=== PATIENT | female | born 1960 | race Caucasian/White ===

== ENCOUNTER 2017-01-06 08:45 | Inpatient (IN) | payer OTHER ==
--- NOTE | ~2017-01-06 | CT57 ---
[facility] A Service of [facility] & [facility] RADIOLOGY TEXT RESULTS PATIENT: VENESSA RAMIREZ LOCATION: [address] : [birth year] UNIT #: [id number] AGE: [address]: Lacy Loyd MD SEX: F ORDER DR: [id number] [facility] [address] [place], [place] [address] [id number] MR#: [id number] Acc #: [id number] NAME: VENESSA RAMIREZ : 1960 SEX: F STUDY DATE/TIME: 01/06/2017 13:50 UNIT: [facility] ROOM: [facility] STUDY DESCRIPTION: CT Chest Wo Cont Attending Physician: Lacy Loyd M.D. Ordering Physician: Zahira Garcia M.D. Primary Care Physician: Bella Chase M.D. MEDICAL IMAGING REPORT This report is preliminary unless electronic signature is present EXAM CT chest without contrast, 01/06/2017 1350 hours. CLINICAL HISTORY 56-year-old woman with shortness of air for 3 months, intubation today. COMPARISON CT abdomen 07/18/2014 and chest x-ray 01/06/2017. No prior chest CT available for comparison. TECHNIQUE Helical noncontrasted images were obtained from the thoracic inlet through the adrenal glands. Sagittal and coronal reconstructions were performed. Total exam DLP 875 mGy-cm. This CT exam was performed with one or more of the following radiation dose reduction techniques: automatic exposure control, adjustment of mA and/or kV according to patient size, and iterative reconstruction. FINDINGS Images through the thoracic inlet demonstrate no definite thyroid lesion or adenopathy. There is an endotracheal tube present with tip right at the orifice of the right mainstem bronchus. Suggest withdrawing 1-2 cm. There is no pathologic mediastinal, hilar or axillary adenopathy. The main pulmonary artery is increased in size measuring 4.1 cm with mild prominence of the right and left pulmonary arteries which can be associated with pulmonary arterial hypertension. The aorta is normal in caliber. There is no pathologic adenopathy. No pleural or pericardial fluid. STS. [facility] A Service of [facility] & [facility] RADIOLOGY TEXT RESULTS PATIENT: VENESSA RAMIREZ LOCATION: CIC3 CICCU3-16 : 56 UNIT #: [id number] AGE: [address]: Lacy Loyd MD SEX: F ORDER DR: Lung window images demonstrate normal vascularity. There is no evidence of pneumonia or edema. There is linear and plate-like density at the right and left lung bases consistent with atelectasis. Limited views through the upper abdomen demonstrate no liver lesion. Benign low-density left adrenal adenoma is unchanged. IMPRESSION 1. The tip of the endotracheal tube is right at the orifice of the right mainstem bronchus. Suggest withdrawing 1-2 cm. 2. There is prominence of the pulmonary arteries which can be associated with pulmonary arterial hypertension. The aorta is normal in caliber. 3. Pulmonary vascularity is otherwise normal. There is no evidence of edema, pneumonia or effusion. There is mild linear to plate-like bibasilar densities consistent with atelectasis. 4. Stable fat-containing left adrenal adenoma. Dictated by... Flor Minor M.D. THIS IS AN ELECTRONICALLY VERIFIED REPORT Flor Minor M.D. at 01/07/2017 9:[address] TD: 01/06/2017 23:05 JOB #: [id number] MEDICAL IMAGING REPORT Page 1 of 1 COPY
--- NOTE | ~2017-01-06 | CR7 ---
[facility] A Service of [facility] & [facility] RADIOLOGY TEXT RESULTS PATIENT: VENESSA RAMIREZ LOCATION: [address] : 56 UNIT #: [id number] AGE: [address]: Lacy Loyd MD SEX: F ORDER DR: [id number] [facility] [address] [place], [place] [address] [id number] I MR#: [id number] Acc #: [id number] NAME: VENESSA RAMIREZ : 1960 SEX: F STUDY DATE/TIME: 01/06/2017 18:10 UNIT: [facility] ROOM: [facility] STUDY DESCRIPTION: CR Abdomen Single AP View Attending Physician: Lacy Loyd M.D. Ordering Physician: Lacy Loyd M.D. Primary Care Physician: Bella Chase M.D. MEDICAL IMAGING REPORT This report is preliminary unless electronic signature is present EXAM Abdomen single AP view. HISTORY Feeding tube placement today. COMMENT KUB obtained 18:10 01/06/2017 shows feeding tube terminating expected location mid stomach. Recommend advancement 10-15 cm with followup film for better positioning. IMPRESSION Feeding tube terminates expected location mid stomach. Recommend advancement 10-15 cm with a followup film for better placement. Dictated by... Roshni Monreal M.D. THIS IS AN ELECTRONICALLY VERIFIED REPORT Rohsni Monreal M.D. at 01/07/2017 10:20 AM AMAN/timmy TD: 01/07/2017 10:13 JOB #: [id number] MEDICAL IMAGING REPORT Page 1 of 1 COPY
--- NOTE | ~2017-01-06 | HP ---
Unit #: [id number] #: [id number] Patient: VENESSA RAMIREZ [id number] [facility] [place], [place] [address] [id number] I MR#: [id number] NAME: VENESSA RAMIREZ ROOM: [facility] Age: 56 Sex: F Admission Date: 01/06/2017 : 1960 Attending Physician: Bella Chase M.D. Primary Care Physician: Unknown Not Know HISTORY AND PHYSICAL CHIEF COMPLAINT Shortness of breath. HISTORY OF PRESENT ILLNESS Ms. Ramirez is a 56-year-old female transferred from [facility] after presenting there with shortness of breath. The patient is awake and nods and tries to answer on the ventilator, but obviously ability to obtain history is limited and history is taken primarily from the chart. The patient presented at approximately 3 a.m. this morning to [facility] complaining of shortness of breath. She arrived via ambulance. She was found to be in significant respiratory distress by EMS and was given a DuoNeb nebulizer treatment. However, she still was significantly tachypneic per ER notes and requiring accessory muscle use. Her O2 sat was somewhere in the 30% to 50% range on room air, and the patient was emergently intubated. The patient was reportedly trying to smoke last evening when she became short of breath, per the patient's daughter. I will note the patient's daughter currently is not at bedside. The patient was given Levaquin and subsequently transferred to our facility. Per record review, the patient was admitted to [facility] in November with Serratia pneumonia and was intubated during that stay. She was also diagnosed with influenza earlier in December. That was, I believe, on December 19, 2016, per records. The patient denies any chest pain prior to the onset of symptoms but now states she has some sharp stabbing chest pain. She denies any orthopnea. She denies any fever at home. She denies any sick contacts. She did not reveal to me she had been smoking at home, but again, ability to obtain history is limited. The patient is currently satting 100% on current vent settings, which include AC with a rate of 12, a PEEP of 5 and FIO2 of 100%. She is awake and very comfortable on the ventilator and on minimal amounts of propofol. She is being admitted due to her respiratory failure. While at [facility], NG tube placement was attempted, but unfortunately, the patient developed nosebleed, and NG has not been placed. This resulted in a nosebleed, and the patient subsequently had blood in her NG tube following this nosebleed. PAST MEDICAL HISTORY 1. Chronic respiratory failure, maintained on 2 liters of oxygen per nasal cannula continuously. Per record review, the patient had been increasing this to 4 liters at home over the last day or so. 2. Recent influenza. Unit #: [id number] #: [id number] Patient: VENESSA RAMIREZ 3. COPD. 4. Diabetes mellitus type 2. 5. Schizophrenia. 6. Hyperlipidemia. 7. Seasonal allergies. 8. Hypertension. 9. Hypothyroidism. 10. Gastroesophageal reflux disease. 11. Morbid obesity. 12. Questionable history of amitriptyline overdose per records. PAST SURGICAL HISTORY (per record review) 1. Tubal ligation. 2. Cholecystectomy. 3. Colonoscopy. 4. Hernia repair. FAMILY HISTORY Family history is significant for emphysema in the patient's father; diabetes in the patient's mother, brother, sister and maternal grandfather; breast cancer in the patient's mother; hypertension in mother, brother and sister; heart disease in mother, brother and sister; stroke in the patient's mother and maternal grandfather; pulmonary embolism in the patient's mother and sister; schizophrenia in the patient's father; seizure in the patient's sister and prior history of DVT in the patient's sister, as well; stomach cancer in the patient's mother and prior history of alcohol addiction. Aneurysm is also noted but location is unknown. ALLERGIES Penicillin, sulfa, codeine and tetracycline. HOME MEDICATIONS 1. Elavil 100 mg 2 tablets at bedtime. 2. Fish oil 1,200 mg daily. 3. Geodon 80 mg 2 capsules at bedtime. 4. Januvia 100 mg daily. 5. Percocet 5/325 mg 1 tablet q.4 hours p.r.n. pain. 6. Singulair 10 mg daily. 7. Symbicort 160/4.5 mcg 2 puffs b.i.d. 8. Vitamin D2 - 50,000 units weekly. 9. Zyrtec 10 mg daily. 10. DuoNeb nebulizer treatments q.i.d. 11. Norvasc 10 mg daily. 12. Atorvastatin 10 mg at bedtime. 13. Glimepiride 4 mg b.i.d. 14. Hydrochlorothiazide 25 mg every other day. 15. Levothyroxine 200 mcg daily. 16. Losartan 50 mg daily. 17. Metformin 1,000 mg b.i.d. 18. Metoprolol tartrate 50 mg b.i.d. 19. Omeprazole 40 mg daily. SOCIAL HISTORY Patient reportedly was living at home with her daughter and had been smoke free for 6 weeks but, again, there is this report that perhaps she was trying to smoke yesterday when she became short of breath. There is no alcohol use. Unit #: [id number] #: [id number] Patient: VENESSA RAMIREZ REVIEW OF SYSTEMS Unobtainable given the patient is intubated. PHYSICAL EXAMINATION VITAL SIGNS: Current temperature 97.8, blood pressure 120/58, respiratory rate 22, oxygen saturation 100%. The patient is currently on AC with a rate of 12, PEEP of 5 and FIO2 of 100%. GENERAL: The patient is awake. She is alert. She does nod and mouth answers to you on minimal amounts of propofol. She does not appear uncomfortable. HEENT: Pupils are equally round and reactive to light bilaterally. Anicteric sclera. No conjunctival pallor. Oropharynx is difficult to evaluate, although I will note there is some blood in the NG tube. NECK: Supple. No lymphadenopathy. No thyromegaly. No JVD. Significantly increased neck diameter noted. HEART: Regular rate and rhythm without murmur, rub or gallop. LUNGS: Diminished anteriorly but I cannot appreciate any wheezes, rhonchi or crackles. ABDOMEN: Obese, soft, nontender, mildly distended. Positive bowel sounds. EXTREMITIES: No cyanosis, clubbing. She has 1+ lower extremity pitting edema. SKIN: Warm. It is mildly dry. There is brownish discoloration to anterior shins in lower extremities consistent with chronic venous stasis. No other rash appreciated. NEUROLOGIC: Cranial nerves II-XII are intact. Sensation, strength, deep tendon reflexes grossly are normal. MUSCULOSKELETAL: No significant joint abnormalities noted upon exam. PSYCHIATRIC: Appears alert and oriented but, again, otherwise, limited. DIAGNOSTIC STUDIES LABORATORY: Labs done at [facility] reveal a negative Tylenol and salicylate level in addition to a negative alcohol. ABG upon presentation revealed a pH of 7.28, pCO2 of 71, pO2 of 132. This is while she was on the ventilator with an FIO2 of 70%. CMP reveals a sodium of 136, potassium 4, chloride 95, CO2 of 34, BUN 24, creatinine 0.9, glucose of 219. AST, ALT, lactic acid, bilirubin are all normal. Troponin was less than 0.02, and BNP was 66. WBC mildly elevated at 11.2, hemoglobin 10.9, platelet count 252,000. INR was normal at 0.9. Urinalysis was also unremarkable. IMAGING: Chest x-ray done there reveals some mild pulmonary congestion and cardiomegaly and perhaps atelectasis versus effusion in the left lower lobe. CARDIOVASCULAR: EKG reveals normal sinus rhythm. There is no acute ST or T wave abnormality. ASSESSMENT 1. Acute on chronic hypercapnic hypoxic respiratory failure. 2. Mild COPD exacerbation. 3. Questionable pneumonia of the left lower lobe. 4. Anemia. 5. Diabetes mellitus type 2. 6. Hypertension. 7. Hyperlipidemia. 8. Gastroesophageal reflux disease. 9. Probable obstructive sleep apnea. Unit #: [id number] #: [id number] Patient: VENESSA RAMIREZ 10. History of schizophrenia. 11. Chronic pain syndrome, maintained on narcotics. 12. Obesity. PLAN 1. Will admit the patient to the ICU. Will consult Dr. Garcia for ventilatory management. I am going to start her on Solu-Medrol, in addition to empiric antibiotics and give her a single dose of Lasix until we can further evaluate respiratory status. I am hoping she will not require intubation for any prolonged period. 2. I am going to hold other home meds. Will place her on Lovenox and Protonix. Will also provide hydralazine p.r.n. for blood pressure. 3. Will try to get copy of records from [facility]. 4. Accu-Cheks q.6 hours for now. Dictated by Lacy Loyd M.D. BERNIE/soren TD: 01/06/2017 09:38 JOB #: [id number] HISTORY AND PHYSICAL Page 1 of 1 X Lacy Loyd MD HISTORY AND PHYSICAL
--- NOTE | ~2017-01-06 | EKG ---
PATIENT: VENESSA RAMIREZ UNIT #: [id number] Ventricular Rate: 97 BPM Atrial Rate: 97 BPM P-R Interval: 198 ms QRS Duration: 98 ms Q-T Interval: 494 ms QTC Calculation(Bezet): 627 ms P [place]: 47 degrees Calculated R [place]: 151 degrees Calculated T [place]: 58 degrees Diagnosis Line: Normal sinus rhythm Diagnosis Line: Right ventricular hypertrophy Diagnosis Line: Nonspecific ST and T wave abnormality Diagnosis Line: Prolonged QT Diagnosis Line: Abnormal ECG Diagnosis Line: When compared with ECG of 06-JAN-2017 11:48, Diagnosis Line: Aberrant conduction is no longer Present Diagnosis Line: Questionable change in QRS axis Diagnosis Line: Nonspecific T wave abnormality, improved in Diagnosis Line: Lateral leads Diagnosis Line: QT has lengthened Diagnosis Line: Confirmed by JENNY BAKER MD ([id number]) on 01/08/2017 Diagnosis Line: 9:18:27 AM INTERPRETING MD: OLIVIA PERLA
--- NOTE | ~2017-01-06 | CR63 ---
[facility] A Service of [facility] & [facility] RADIOLOGY TEXT RESULTS PATIENT: VENESSA RAMIREZ LOCATION: [facility] 563-01 : 56 UNIT #: [id number] AGE: [address]: Lacy Loyd MD SEX: F ORDER DR: [id number] [facility] [address] [place], [place] [address] [id number] I MR#: [id number] #: [id number] NAME: VENESSA RAMIREZ : 1960 SEX: F STUDY DATE/TIME: 01/08/2017 9:11 UNIT: [facility] ROOM: [facility] STUDY DESCRIPTION: CR Chest 2 View Attending Physician: Lacy Loyd M.D. Ordering Physician: Zahira Garcia M.D. Primary Care Physician: Bella Chase M.D. MEDICAL IMAGING REPORT This report is preliminary unless electronic signature is present EXAM Chest x-ray HISTORY Cough and shortness of breath for the past 2 days. TECHNIQUE 2 views of the chest were obtained. FINDINGS Cardiomegaly is again seen. In the lungs, pulmonary vascular markings are mildly prominent. No focal infiltrates are seen on either side. No definite pleural effusions are noted. Since the previous examination, no new infiltrates are seen. IMPRESSION No change following extubation. Mild vascular congestion is seen but there are no new infiltrates on either side. Dictated by... Lalo Rodriguez M.D. THIS IS AN ELECTRONICALLY VERIFIED REPORT Lalo Rodriguez M.D. at 01/08/2017 3:44 PM MINE/lane TD: 01/08/2017 10:50 JOB #: [id number] MEDICAL IMAGING REPORT Page 1 of 1 COPY
--- NOTE | ~2017-01-06 | A ---
[facility] Nutrition Therapy DATE: 01/06/17 Patient: VENESSA RAMIREZ Physician: GRETA Address: [address] [facility] Room/Bed: [address], Zip: [place] [address] Admit Date: 01/06/17 Date of : 56 Height: 5 0 Weight: 286 130 NUTRITIONAL ASSESSMENT: REASON: NPO status in ICU 56 yo female admitted for respiratory failure, PNA, COPD exacerbation PMH: COPD, HLD, HTN, DM, GERD, asthma, chronic neck and back pain, morbid obesity, chronic schizo phrenia, cholecysctectomy, hernia repair Anthropometrics: Ht: 63" wt: 130 kg BMI: 50.8 IBW: 52.3 kg Labs: Accuchecks 145, no other labs available Meds: Propofol @ 12.4, solu-medrol, protonix, novolog, zofran I/O & Bowel function: none available, last BM unknown Skin Integrity: Bruise RLE Edema: BLE 1+ Estimated Nutrition Needs: 8739-0351 kcals (11-14 kcals/kg ABW) 104-130 grams protein (2.0-2.5 grams/kg IBW) Assessment: Chart reviewed, events noted. Pt is intubated and sedated in the ICU. Propofol is providing an additional 327 kcals from lipids at this time. Pt is awake on the vent despite sedation, able to say that she is 5'3" when RN asked. DHT placement ordered per MD note in chart with no plans for nutrition support at this time. No family in room to provide further information. Please see recommendations below. Dx: Inadequate protein-energy intake RT clinical condition AEB intubated, NPO status. Intervention: 1. Enteral nutrition once medically feasible Monitoring, Evaluation and Goals: 1. Nutrition; provide >80% estimated nutrient needs 2. Labs; WNL: glucose 3. Weight; prevent unintentional weight loss, promote gradual weight loss towards healthy BMI range once medically feasible Recommendations: [facility] Nutrition Therapy DATE: 01/06/17 Patient: VENESSA RAMIREZ Physician: GRETA Address: [address] [facility] Room/Bed: [address], Zip: [place] [id number] Admit Date: 01/06/17 Date of : 56 Height: 5 0 Weight: 286 130 1. Once medically feasible, recommend initiating enteral nutrition with Glucerna 1.5 @ 20 mL/hr. Increase by 10 mL q 8 hrs as tolerated to indicated goal below: WHILE THE PT IS RECEIVING PROPOFOL: -Increase Glucerna 1.5 to 35 mL/hr + 30 mL Prostat TID to provide: 1887 kcals/ 114 grams protein/ 638 mL free H20 WHEN THE PT IS NO LONGER RECEIVING PROPOFOL: -Increase Glucerna 1.5 to 45 mL/hr + 30 mL Prostat once daily to provide: 1720 kcals/ 104 grams protein/ 820 mL free H20 2. If the pt is extubated, recommend advancing diet per BLOOD BANK LABORATORY TECHNICIAN recommendations + heart healthy/ consistent carbohydrate restrictions. Pt is at moderate-severe nutritional risk. RD will follow hospital course. Respectfully, ISABEL TAYLOR RD, LD Food and Nutritional Services [facility] cc: client file
--- NOTE | ~2017-01-06 | EKG ---
PATIENT: VENESSA RAMIREZ UNIT #: [id number] Ventricular Rate: 89 BPM Atrial Rate: 89 BPM P-R Interval: 150 ms QRS Duration: 94 ms Q-T Interval: 420 ms QTC Calculation(Bezet): 511 ms P [place]: 55 degrees Calculated R [place]: -59 degrees Calculated T [place]: 49 degrees Diagnosis Line: Sinus rhythm with Possible Premature atrial Diagnosis Line: complexes with Aberrant conduction Diagnosis Line: Left axis deviation Diagnosis Line: Nonspecific T wave abnormality Diagnosis Line: Prolonged QT Diagnosis Line: Abnormal ECG Diagnosis Line: No previous ECGs available Diagnosis Line: Confirmed by ELIJAH AYALA MD ([id number]) on Diagnosis Line: 01/06/2017 2:29:26 PM INTERPRETING MD: LUCY PERLA
--- NOTE | ~2017-01-06 | EKG ---
PATIENT: VENESSA RAMIREZ UNIT #: [id number] Ventricular Rate: 86 BPM Atrial Rate: 86 BPM P-R Interval: 176 ms QRS Duration: 108 ms Q-T Interval: 402 ms QTC Calculation(Bezet): 481 ms P [place]: 50 degrees Calculated R [place]: -26 degrees Calculated T [place]: 39 degrees Diagnosis Line: Normal sinus rhythm Diagnosis Line: Prolonged QT Diagnosis Line: Abnormal ECG Diagnosis Line: When compared with ECG of 07-JAN-2017 06:49, Diagnosis Line: (unconfirmed) Diagnosis Line: QRS axis Shifted left Diagnosis Line: ST no longer depressed in Anterior leads Diagnosis Line: T wave inversion less evident in Anterolateral Diagnosis Line: leads Diagnosis Line: QT has shortened Diagnosis Line: Confirmed by JENNY BAKER MD ([id number]) on 01/09/2017 Diagnosis Line: 9:35:09 AM INTERPRETING MD: OLIVIA PERLA
--- NOTE | ~2017-01-06 | CO ---
Unit #: [id number] #: [id number] Patient: VENESSA RAMIREZ [id number] [address] [address] [id number] I MR#: [id number] NAME: VENESSA RAMIREZ ROOM: [facility] Age: 56 Sex: F Admission Date: 01/06/2017 : 1960 Attending Physician: Lacy Loyd M.D. Primary Care Physician: Bella Chase M.D. CONSULTATION REPORT REASON FOR CONSULTATION Critical care management. CHIEF COMPLAINT Cough, shortness of breath. HISTORY OF PRESENT ILLNESS 56-year-old female with a past medical history of severe COPD and chronic hypoxic respiratory failure, recent pneumonia, diabetes mellitus, schizophrenia, hypertension, dyslipidemia, gastroesophageal reflux disease and likely obstructive sleep apnea, presents to the outside emergency room with a complaint of cough, shortness of breath and was found to be hypoxic. Patient was intubated at an outside facility, transferred to us. I am seeing the patient at bedside. Currently awake, alert, on a ventilator. Following commands. REVIEW OF SYSTEMS Unobtainable due to patient being on ventilator. PAST MEDICAL HISTORY As described above. PAST SURGICAL HISTORY 1. Tubal ligation. 2. Cholecystectomy. 3. Colonoscopy. 4. Hernia repair. FAMILY HISTORY Significant for emphysema. SOCIAL HISTORY Positive for smoking. No alcohol, no drug abuse. ALLERGIES Penicillin, sulfa, codeine, tetracycline. HOME MEDICATIONS 1. Elavil. 2. Fish oil. 3. Geodon. 4. Januvia. Unit #: [id number] #: [id number] Patient: VENESSA RAMIREZ 5. Percocet. 6. Singulair. 7. Symbicort. 8. Vitamin D2. 9. Zyrtec. 10. Duo-Nebs. 11. Norvasc. 12. Lipitor. 13. Glimepiride. 14. Hydrochlorothiazide. 15. Levothyroxine. 16. Losartan. 17. Metformin. 18. Metoprolol. 19. Omeprazole. SOCIAL HISTORY Quit smoking four to six weeks. Started smoking again. Denies alcohol or drug abuse. PHYSICAL EXAMINATION VITAL SIGNS: Temperature is currently 96, pulse 71, blood pressure is 123/77. NEUROLOGICAL: Awake, alert, oriented. No neuro deficit. HEENT: PERRLA. NECK: Supple. No JVD. CHEST: Bilateral air entry, bilateral mild rhonchi. GI: Nontender, soft. Bowel sounds positive. EXTREMITIES: No edema. SKIN: No rashes, no ulcers. LYMPHATIC: No lymphadenopathy. DIAGNOSTIC STUDIES Labs and imaging have been reviewed. ASSESSMENT AND PLAN 1. Acute hypoxic/hypercapnic respiratory failure. 2. Acute exacerbation of chronic obstructive pulmonary disease, likely pneumonia: Rule out volume overload. Plan is to continue patient on vent support. Check a BMP, diurese, non-contrast CT of the chest, CPAP trial, IV steroids, IV antibiotics. Check for flu. Patient will be closely monitored. Please see orders for detailed plan. Thank you very much for this consultation. Will continue to follow the patient. Dictated by... Radha Mchugh/zuly TD: 01/06/2017 12:41 JOB #: [id number] Unit #: [id number] #: [id number] Patient: VENESSA RAMIREZ CONSULTATION REPORT Page 1 of 1 X Zahira Garcia MD X CONSULTATION REPORT
--- NOTE | ~2017-01-06 | CR72 ---
[facility] A Service of [facility] & [facility] RADIOLOGY TEXT RESULTS PATIENT: VENESSA RAMIREZ LOCATION: [facility] 563-01 : 56 UNIT #: [id number] AGE: [address]: Lacy Loyd MD SEX: F ORDER DR: [id number] [facility] [address] [place], [place] [address] [id number] MR#: [id number] Acc #: [id number] NAME: VENESSA RAMIREZ : 1960 SEX: F STUDY DATE/TIME: 01/07/2017 3:21 UNIT: [facility] ROOM: [facility] STUDY DESCRIPTION: CR Chest Single View Portable Attending Physician: Lacy Loyd M.D. Ordering Physician: Lacy Loyd M.D. Primary Care Physician: Bella Chase M.D. MEDICAL IMAGING REPORT This report is preliminary unless electronic signature is present EXAM AP portable chest, 01/07/2017. HISTORY Respiratory failure. Patient on ventilator. Follow up pulmonary status. TECHNIQUE AP portable chest x-ray. FINDINGS The exam shows no change since yesterday. Endotracheal tube tip about 1.7 cm above the kiran. Cardiomegaly with prominent central pulmonary arteries. Mild bibasilar atelectasis. Lungs otherwise clear. No visible airspace consolidation or pleural effusion. IMPRESSION Stable portable chest radiograph, unchanged since yesterday. Dictated by... Paulo Mendoza M.D. THIS IS AN ELECTRONICALLY VERIFIED REPORT Paulo Mendoza M.D. at 01/07/2017 10:06 PM KATERINA/dereje TD: 01/07/2017 13:30 JOB #: [id number] MEDICAL IMAGING REPORT Page 1 of 1 COPY
--- NOTE | ~2017-01-06 | DS ---
Unit #: [id number] #: [id number] Patient: VENESSA RAMIREZ [id number] [address] [place], [place] [address] [id number] MR#: [id number] NAME: VENESSA RAMIREZ ROOM: 563 Age: 56 Sex: F Admission Date: 01/06/2017 : 1960 Discharge Date: 01/08/2017 Attending Physician: Lacy Loyd M.D. Primary Care Physician: Bella Chase M.D. DISCHARGE SUMMARY PRIMARY CARE PHYSICIAN Unknown. PRINCIPAL DIAGNOSES 1. Acute on chronic hypercapnic hypoxic respiratory failure, maintained on 3 L of oxygen per nasal cannula continuously. 2. Acute exacerbation of chronic obstructive pulmonary disease. 3. Obstructive sleep apnea, untreated. 4. Hypomagnesemia. 5. Diabetes mellitus type 2, non-insulin requiring with stable blood sugars. 6. Hypertension. 7. Hypothyroidism. 8. Normocytic anemia. 9. Pulmonary hypertension per chest x-ray. 10. 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 11. Gastroesophageal reflux disease. 12. Hyperlipidemia. 13. Schizophrenia. 14. Morbid obesity. CONSULTANTS Dr. Garcia, Pulmonology. PROCEDURES 1. Two-dimensional echocardiogram with ejection fraction of 55% to 60%. Grade 1 diastolic dysfunction noted. Right ventricular hypertrophy noted, but low normal right ventricular function. No evidence of pericardial effusion. 2. CT of the chest without contrast on 01/06/2017 with prominence of pulmonary artery, otherwise pulmonary vascularity is normal. No evidence of pneumonia. 3. Chest x-ray on 01/08/2017 with no changes. No focal infiltrates. CLINICAL HISTORY AND HOSPITAL COURSE Ms. Ramirez is a nice 56-year-old female with a history of COPD, who presents to [place] [facility] with acutely short of breath and significantly hypoxic, requiring intubation. Please refer to H and P for further details. The patient was transferred to our facility for ICU care. Dr. Garcia was consulted and the patient was started on IV steroids. She was also started on empiric antibiotics given concern for questionable left lower lobe pneumonia on chest x-ray. However, I will note she was Unit #: [id number] #: [id number] Patient: VENESSA RAMIREZ afebrile and only had minimal elevation of white blood cell count. CT scan of the chest was done, did not reveal any pneumonia and antibiotics were discontinued. The patient as noted above was intubated at [facility], but upon arrival to our hospital looks very stable. She was subsequently extubated on 01/07/2017. She then returned to a chronic 3 L of oxygen per nasal cannula continuously and feels well. She is having minimal wheezing and will transition to oral steroids. The patient does have significant underlying sleep apnea and appears all over shortness of breath happens at night while sleeping. The patient will follow up with Dr. Garcia rather quickly to arrange a sleep study given CPAP and/or BiPAP at home. The patient's other chronic condition remained stable. I will note she did have a prolonged QT greater than 600 milliseconds, but I held her Geodon and Elavil and thus normalized. I am going to discontinue her Elavil at night. Continue her Geodon and this can be followed up with her primary care physician. DISCHARGE CONDITION Stable. DISCHARGE STATUS Discharged to home. DISCHARGE MEDICATIONS Oxygen 3 L per nasal cannula continuously; prednisone 10 mg tablets, four tablets for 3 days, three tablets for 3 days, two tablets for 3 days, one tab for 3 days, then discontinue; DuoNeb nebulizer treatments 3 mL every 6 hours; Lopressor 50 mg b.i.d.; Lipitor 10 mg at bedtime; Singulair 10 mg daily; Percocet 5/325 one tablet p.o. q.4 hours p.r.n. for pain; levothyroxine 200 mcg p.o. daily; omeprazole 40 mg daily; metformin 1000 mg b.i.d.; glimepiride 4 mg b.i.d.; losartan 50 mg daily. Symbicort 160/4.5 mcg 2 puffs b.i.d.; fish oil 1200 mg daily; Geodon 80 mg two tablets at bedtime; Januvia 100 mg daily. Of note, I am discontinue the patient's Elavil 100 mg two tablets at bedtime and Norvasc 10 mg daily given blood pressure here is remained stable. DISCHARGE INSTRUCTIONS The patient was instructed to follow heart healthy, constant carb diet. She can increase her activity as tolerated. The patient will follow up with Dr. Garcia in 1 week. Needs outpatient polysomnography and arrangement of CPAP and/or BiPAP. She is to follow up with her primary care physician in 1 to 2 weeks and have repeat EKG in the hospital to ensure prolonged QT stable. Time spent on discharge 32 minutes. Dictated by... Lacy Loyd M.D. BERNIE/veronica Unit #: [id number] #: [id number] Patient: VENESSA RAMIREZ TD: 01/09/2017 06:39 JOB #: [id number] DISCHARGE SUMMARY Page 1 of 1 X Lacy Loyd MD X DISCHARGE SUMMARY
[2017-01-06 09:15] LABS: ARTERIAL BLOOD GAS CARBOXY HB 0.1 %sat (0.0-9.0); ARTERIAL BLOOD GAS HCO3 35.2 mmol/L; ARTERIAL BLOOD GAS MET HB 0.9 %sat (0.0-2.0)
[2017-01-06 09:16] LABS: ARTERIAL BLOOD GAS ALLEN TEST NORMAL; ARTERIAL BLOOD GAS ART SITE LEFT RADIAL; ARTERIAL BLOOD GAS DELIVERY VENT; ARTERIAL BLOOD GAS PCO2 65.3 mmHg (35.0-45.0); ARTERIAL BLOOD GAS VENT MODE AC; ARTERIAL DRAW? YES
[2017-01-06 12:20] LABS: BLOOD UREA NITROGEN 25 mg/dL (9-23); BUN/CREATININE RATIO 27.77; CALCIUM SERUM 9.1 mg/dL (8.4-10.2); CARBON DIOXIDE 35 mmol/L (22-31); CHLORIDE 94 mmol/L (100-111); CREATININE SERUM 0.9 mg/dL (0.6-1.4); GLOM FILT RATE Estimated ABOVE60 mL/min (>60); GLUCOSE FASTING 146 mg/dL (70-110); POTASSIUM 4.1 mmol/L (3.5-5.1); SODIUM 138 mmol/L (135-145)
[2017-01-06 13:17] LABS: INFLUENZA A NEG (NEG); INFLUENZA B NEG (NEG)
[2017-01-07 05:17] LABS: ARTERIAL BLD GAS O2 SATURATION 96.8 % (90.0-100.0); ARTERIAL BLOOD GAS CARBOXY HB 0.7 %sat (0.0-9.0); ARTERIAL BLOOD GAS HCO3 30.7 mmol/L; ARTERIAL BLOOD GAS MET HB 0.9 %sat (0.0-2.0); ARTERIAL BLOOD GAS PCO2 46.8 mmHg (35.0-45.0); ARTERIAL BLOOD GAS pH 7.425 (7.350-7.450)
[2017-01-07 05:29] LABS: ARTERIAL BLOOD GAS ALLEN TEST NORMAL; ARTERIAL BLOOD GAS ART SITE LEFT RADIAL; ARTERIAL BLOOD GAS VENT MODE AC; ARTERIAL DRAW? YES
[2017-01-07 05:55] LABS: BASOPHIL% 0.2 % (0-2.5); EOSINOPHIL% 0.1 % (0.0-7.0); HEMOGLOBIN 10.2 gm/dL (12.0-16.0); LYMPHOCYTE# 0.4 X10e3 (1.0-3.5); MEAN CORPUSCULAR HEMOGLOBIN 25.7 PG (28-34); MEAN CORPUSCULAR HGB CONC 31.7 g/dL (30-36); MEAN PLATELET VOLUME 8.8 FL (6.5-11.5); MONOCYTE# 0.1 X10e3 (0-1.0); MONOCYTE% 1.2 % (3.0-12.0); NEUTROPHIL# 7.2 X10e3 (1.5-7.1); NEUTROPHIL% 93.5 % (40-75); PLATELET COUNT 193 X10e3 (140-420); RED BLOOD COUNT 3.95 X10e (3.90-5.30); RED CELL DISTRIBUTION WIDTH 19.3 % (11.0-15.5); WHITE BLOOD COUNT 7.7 X10e3 (4.0-10.5)
[2017-01-07 06:02] LABS: DIFF IND NO
[2017-01-07 06:20] LABS: ALBUMIN SERUM 3.2 g/dL (3.5-5.0); ALKALINE PHOSPHATASE 86 U/L (32-92); ALT (SGPT) 17 U/L (10-40); AST (SGOT) 23 U/L (10-42); BILIRUBIN,TOTAL 0.5 mg/dL (0.2-2.0); BLOOD UREA NITROGEN 28 mg/dL (9-23); BUN/CREATININE RATIO 31.11; CALCIUM SERUM 8.7 mg/dL (8.4-10.2); CARBON DIOXIDE 30 mmol/L (22-31); CHLORIDE 94 mmol/L (100-111); CREATININE SERUM 0.9 mg/dL (0.6-1.4); GLOM FILT RATE Estimated ABOVE60 mL/min (>60); GLUCOSE FASTING 236 mg/dL (70-110); MAGNESIUM 1.3 mg/dL (1.6-3.0); POTASSIUM 3.6 mmol/L (3.5-5.1); PROTEIN TOTAL SERUM 6.7 g/dL (6.0-8.3); SODIUM 134 mmol/L (135-145)
[2017-01-07 07:49] LABS: ARTERIAL BLD GAS O2 SATURATION 94.8 % (90.0-100.0); ARTERIAL BLOOD GAS CARBOXY HB 0.4 %sat (0.0-9.0); ARTERIAL BLOOD GAS HCO3 32.6 mmol/L; ARTERIAL BLOOD GAS MET HB 0.9 %sat (0.0-2.0); ARTERIAL BLOOD GAS PO2 80.7 mmHg (80.0-100); ARTERIAL BLOOD GAS pH 7.412 (7.350-7.450)
[2017-01-07 07:50] LABS: ARTERIAL BLOOD GAS ART SITE RIGHT BRACHIAL; ARTERIAL BLOOD GAS DELIVERY VENT; ARTERIAL BLOOD GAS PCO2 51.2 mmHg (35.0-45.0); ARTERIAL BLOOD GAS VENT MODE CPAP; ARTERIAL DRAW? YES
[2017-01-08 03:53] LABS: ARTERIAL BLD GAS O2 SATURATION 94.8 % (90.0-100.0); ARTERIAL BLOOD GAS CARBOXY HB 0.4 %sat (0.0-9.0); ARTERIAL BLOOD GAS HCO3 27.4 mmol/L; ARTERIAL BLOOD GAS MET HB 0.7 %sat (0.0-2.0); ARTERIAL BLOOD GAS PO2 89.3 mmHg (80.0-100); ARTERIAL BLOOD GAS pH 7.304 (7.350-7.450)
[2017-01-08 03:57] LABS: ARTERIAL BLOOD GAS ART SITE RIGHT RADIAL; ARTERIAL BLOOD GAS DELIVERY NASAL CANNULA; ARTERIAL BLOOD GAS FIO2 0.32 %; ARTERIAL BLOOD GAS PCO2 55.3 mmHg (35.0-45.0); ARTERIAL DRAW? YES
[2017-01-08 06:57] LABS: BASOPHIL# 0.1 X10e3 (0-0.3); BASOPHIL% 1.1 % (0-2.5); EOSINOPHIL% 0.1 % (0.0-7.0); HEMATOCRIT 31.9 % (35.0-45.0); LYMPHOCYTE# 0.7 X10e3 (1.0-3.5); LYMPHOCYTE% 8.5 % (17.0-45.0); MEAN CELL VOLUME 81.4 FL (83-96); MEAN CORPUSCULAR HEMOGLOBIN 25.5 PG (28-34); MEAN CORPUSCULAR HGB CONC 31.4 g/dL (30-36); MEAN PLATELET VOLUME 8.1 FL (6.5-11.5); MONOCYTE# 0.3 X10e3 (0-1.0); MONOCYTE% 3.9 % (3.0-12.0); NEUTROPHIL# 6.8 X10e3 (1.5-7.1); NEUTROPHIL% 86.4 % (40-75); PLATELET COUNT 213 X10e3 (140-420); RED BLOOD COUNT 3.92 X10e (3.90-5.30); RED CELL DISTRIBUTION WIDTH 19.5 % (11.0-15.5); WHITE BLOOD COUNT 7.9 X10e3 (4.0-10.5)
[2017-01-08 07:00] LABS: DIFF IND NO
[2017-01-08 07:28] LABS: ALBUMIN SERUM 3.5 g/dL (3.5-5.0); ALKALINE PHOSPHATASE 82 U/L (32-92); ALT (SGPT) 20 U/L (10-40); AST (SGOT) 31 U/L (10-42); BILIRUBIN,TOTAL 0.5 mg/dL (0.2-2.0); BLOOD UREA NITROGEN 25 mg/dL (9-23); BUN/CREATININE RATIO 27.77; CALCIUM SERUM 9.2 mg/dL (8.4-10.2); CARBON DIOXIDE 29 mmol/L (22-31); CHLORIDE 94 mmol/L (100-111); CREATININE SERUM 0.9 mg/dL (0.6-1.4); GLOM FILT RATE Estimated ABOVE60 mL/min (>60); GLUCOSE FASTING 255 mg/dL (70-110); POTASSIUM 4.7 mmol/L (3.5-5.1); PROTEIN TOTAL SERUM 7.2 g/dL (6.0-8.3); SODIUM 134 mmol/L (135-145)
[2017-01-08] MEDS ORDERED: PREDNISONE10 MG/DOSE PO (15:13)
[2017-01-08] MEDS ORDERED: COMBIVENT U/D3 ML INH (15:14)
[2017-01-08] MEDS ORDERED: LIPITOR PO (15:17)
[2017-01-08] MEDS ORDERED: LOPRESSOR PO (15:17)
[2017-01-08] MEDS ORDERED: SINGULAIR PO (15:20)
[2017-01-08] MEDS ORDERED: PERCOCET5/325 PO (15:21)
[2017-01-08] MEDS ORDERED: SYNTHROID0.2 MG PO (15:22)
[2017-01-08] MEDS ORDERED: METFORMIN PO (15:23)
[2017-01-08] MEDS ORDERED: OMEPRAZOLE40 M1 PO (15:23)
[2017-01-08] MEDS ORDERED: AMARYL PO (15:24)
[2017-01-08] MEDS ORDERED: COZAAR PO (15:25)
[2017-01-08] MEDS ORDERED: SYMBICORT INH (15:26)
[2017-01-08] MEDS ORDERED: FISH OIL500 MG PO (15:26)
[2017-01-08] MEDS ORDERED: GEODON80 MG PO (15:27)
[2017-01-08] MEDS ORDERED: JANUVIA PO (15:27)
== END 2017-01-08 20:16 | disposition home or self-care (01) | DRG 208 ==
LOC: CICCU3 08:45 → C5C 01-07 21:33
PROVIDERS: Internal Medicine
PROC: 5A1945Z Respiratory Ventilation, 24-96 Consecutive Hours (ICD-10-PCS; principal; 2017-01-06)
DX: J96.22 Acute and chronic respiratory failure with hypercapnia (principal); I27.2 Other secondary pulmonary hypertension; J44.1 Chronic obstructive pulmonary disease with (acute) exacerbation; Z68.43 Body mass index [BMI] 50.0-59.9, adult; J96.21 Acute and chronic respiratory failure with hypoxia; G47.33 Obstructive sleep apnea (adult) (pediatric); E83.42 Hypomagnesemia; E11.9 Type 2 diabetes mellitus without complications; Z79.84 Long term (current) use of oral hypoglycemic drugs; I10 Essential (primary) hypertension; E03.9 Hypothyroidism, unspecified; D64.9 Anemia, unspecified; I45.81 Long QT syndrome; K21.9 Gastro-esophageal reflux disease without esophagitis; E78.5 Hyperlipidemia, unspecified; F20.9 Schizophrenia, unspecified; E66.01 Morbid (severe) obesity due to excess calories; F17.210 Nicotine dependence, cigarettes, uncomplicated; G89.4 Chronic pain syndrome; Z87.01 Personal history of pneumonia (recurrent); Z90.49 Acquired absence of other specified parts of digestive tract; Z98.51 Tubal ligation status; Z88.5 Allergy status to narcotic agent; Z88.0 Allergy status to penicillin; Z88.2 Allergy status to sulfonamides; Z88.8 Allergy status to other drugs, medicaments and biological substances
CPT/HCPCS: 36600; 71010; 71020; 71250; 74000; 80048; 80053; 82308; 82803; 82947; 83735; 83880; 84443; 84484; 85025; 87449; 87804; 87899; 92610; 93005; 93306; 94003; 94640; 94760; 97110; 97116; 97162; 97530; 99406; C9113; J0456; J0692; J1650; J1815; J1940; J2250; J2270; J2920; J3370; J3475